=== PATIENT | male | born 1990 | race African-American/Black ===

== ENCOUNTER 2017-12-15 11:58 | Outpatient (CLI) | payer OTHER | END 2017-12-15 11:59 | disposition home or self-care (01) | LOC: BICRAD 11:58 | PROVIDERS: ATTEND Nurse Practitioner Family | DX: M54.5 Low back pain (principal) | CPT/HCPCS: 72100 ==

== ENCOUNTER 2019-06-02 17:43 | Emergency (ER) | payer OTHER, SELFPAY ==
[2019-06-02] MEDS ORDERED: predniSONE 20 MG TAB ONE (18:11)
[2019-06-02] MEDS ORDERED: hydrOXYzine 25 MG TAB ONE (18:11)
== END 2019-06-02 18:17 | disposition home or self-care (01) ==
LOC: ERS 17:43
DX: L25.9 Unspecified contact dermatitis, unspecified cause (principal)
CPT/HCPCS: 99283; J7512

== ENCOUNTER 2019-07-05 18:07 | Emergency (ER) | payer SELFPAY ==
[2019-07-05 20:18] LABS: #Basophils 0.1 thou/uL (0.0-0.2); #Eosinphils 0.2 thou/uL (0.0-0.7); #Lymphocytes 2.5 thou/uL (1.20-3.40); #Monocytes 1.1 thou/uL (0.11-0.59); %Basophils 0.6 % (0.0-1.0); %Eosinophils 1.7 % (0.0-10.0); %Lymphocytes 19.3 % (21.0-51.0); %Monocytes 8.8 % (0.0-10.0); %Neutrophils 69.7 % (42.0-75.0); Hemoglobin 15.2 g/dL (14.0-18.0); Mean Corpuscular HGB CONC 33.7 g/dL (32.0-36.0); Mean Corpuscular Hemoglobin 31.3 pg (27.0-31.0); Mean Corpuscular Volume 92.8 fL (78.0-98.0); Mean Platelet Volume 8.3 fL (7.4-10.4); Platelet Count 201 thou/uL (130-400); RBC Distribution Width 13.2 % (11.5-14.5); Red Blood Cell (RBC) Count 4.85 mill/uL (4.70-6.10); White Blood Cell (WBC) Count 12.9 thou/uL (4.8-10.8)
--- NOTE | 2019-07-05 20:32 | RAD ---
RIGHT ELBOW RADIOGRAPHS FOUR VIEWS: 07/05/19 PROVIDED CLINICAL HISTORY: Right elbow pain and swelling. FINDINGS: There is no evidence for fracture. Alignment appears anatomic. Joint spaces appear preserved. No defi nite evidence for elbow joint capsular distention with limitations due to obliquity of the lateral vi ew. IMPRESSION: No evidence for an acute osseous abnormality. If there is persistent clinical concern, conservative m anagement and follow-up imaging are advised. POS: SERG
[2019-07-05 20:39] LABS: ALT (SGPT) 27 U/L (8-55); AST (SGOT) 24 U/L (5-34); Albumin 4.6 g/dL (3.5-5.0); Alkaline Phosphatase 51 U/L (40-150); Anion Gap 12 mmol/L (10-20); BUN (Urea Nitrogen) 11 mg/dL (8.9-20.6); Bilirubin, Total 1.4 mg/dL (0.2-1.2); Calc. Creatinine Clearance 0 mL/min (70-130); Calcium 10.2 mg/dL (7.8-10.44); Carbon Dioxide 25 mmol/L (22-29); Chloride 105 mmol/L (98-107); Estimated GFR-MDRD Greater than 90; Globulin 3.2 g/dL (2.4-3.5); Glucose 85 mg/dL (70-105); Potassium 3.9 mmol/L (3.5-5.1); Protein, Total 7.8 g/dL (6.0-8.3); Sodium 138 mmol/L (136-145)
[2019-07-05] MEDS ORDERED: Lidocaine 1% w/Epinephrine 1:100K 20 ML VIAL ONE (21:10)
[2019-07-05] MEDS ORDERED: Ketorolac Tromethamine 30 MG/ML VIAL ONE (22:45)
[2019-07-05 23:06] LABS: BF Color Red; Body Fluid Source Synovial Fluid; Clarity Cloudy/Turbid (Clear); RBC Count-Automated (BF) 30865 /cumm; Tube # 1; WBC/Nucleated-Auto (BF) 570 uL
[2019-07-05 23:09] LABS: BF Segmented Neutrophils 44 %; Cell Count Non Hematic 20 %; Lymphocytes 36 %
== END 2019-07-05 23:21 | disposition left against medical advice (07) ==
LOC: ERS 18:07
DX: M25.521 Pain in right elbow (principal); M79.89 Other specified soft tissue disorders
CPT/HCPCS: 20605; 36415; 80053; 85025; 85060; 85652; 86140; 87070; 87205; 89051; 96374; J1885; J2001

== ENCOUNTER 2019-10-13 18:42 | Emergency (ER) | payer SELFPAY | END 2019-10-13 20:00 | disposition home or self-care (01) | LOC: ERS 18:42 | DX: M54.41 Lumbago with sciatica, right side (principal) | CPT/HCPCS: 99283 ==

== ENCOUNTER 2022-09-30 14:42 | Emergency (ER) | payer BC ==
[2022-09-30] MEDS ORDERED: Ketorolac Tromethamine 30 MG/ML VIAL ONE (15:39)
[2022-09-30] MEDS ORDERED: Diazepam 5 MG TAB ONE (15:39)
[2022-09-30] MEDS ORDERED: Morphine 10 MG/ML VIAL ONE (16:12)
== END 2022-09-30 16:50 | disposition home or self-care (01) ==
LOC: ERS 14:42
DX: M54.42 Lumbago with sciatica, left side (principal); M54.41 Lumbago with sciatica, right side
CPT/HCPCS: 96372; 99283; J1885; J2270